=== PATIENT | male | born 1995 | race Caucasian/White ===

== ENCOUNTER → 2016-11-13 | Outpatient (CLI) | payer BC ==
[~2016-11-13] VITALS: Ht 177.8 cm; Wt 106.5 kg
[2016-11-13 13:48] VITALS: BP 135/81; PULSE 116; Ht 177.8 cm; Wt 106.5 kg
== END | disposition home or self-care (01) ==
LOC: C.NEUR 13:21
PROVIDERS: ATTEND Internal Medicine Pulmonary Disease
DX: G47.30 Sleep apnea, unspecified (principal); R06.83 Snoring

== ENCOUNTER → 2016-12-24 | Outpatient (CLI) | payer BC ==
--- NOTE | 2016-12-31 07:06 | POLYSOMNOGRAPH REPORT ---
CLINICAL DATA: A 21-year-old male with history of loud snoring and witnessed apnea without any daytime sleepiness or hypersomnia. He does have a history of sleep apnea. His father had sudden in the middle of the night from a presumed ME and sleep apnea. He has gained a lot of weight over the last few years. On the evening of 12/25/2016, a home sleep apnea test was performed using a [place] type 3 monitor. The patient has a BMI of 32.63. RECORDING RESULTS: Total recording time was 10 hours. The patient's estimated sleep time and patient monitoring time was 8.1 hours. RESPIRATORY DATA: Very mild sleep apnea was documented. The YENY was 5.7. There were 3 obstructive and 8 central apneic episodes. There were 35 hypopneic episodes. The longest respiratory event was 44 seconds. OXIMETRY DATA: Very mild nocturnal hypoxemia was seen. Oxygen blanquita was 80%. Mean saturation was 92%. Time below 89% was 5 minutes. HEART RATE DATA: Heart rates ranged from 48 to 65 beats per minute. SNORING DATA: Snoring was recorded throughout the night. IMPRESSION: Very mild sleep apnea/hypopnea with an YENY of 5.7 with mild nocturnal hypoxemia. RECOMMENDATIONS: The patient may benefit from weight loss, positional therapy, use of an oral appliance, or a repeat sleep study with CPAP. Clinical correlation is needed. BURT
== END | disposition home or self-care (01) ==
LOC: C.NEUR 09:30
PROVIDERS: ATTEND Internal Medicine Pulmonary Disease
DX: G47.30 Sleep apnea, unspecified (principal); R06.83 Snoring

== ENCOUNTER → 2017-01-04 | Outpatient (CLI) | payer BC ==
[~2017-01-04] VITALS: Ht 177.8 cm; Wt 106.9 kg
[2017-01-04 15:51] VITALS: BP 134/89; PULSE 109; Ht 177.8 cm; Wt 106.9 kg
== END | disposition home or self-care (01) ==
LOC: C.NEUR 13:45
PROVIDERS: ATTEND Internal Medicine Pulmonary Disease
DX: G47.30 Sleep apnea, unspecified (principal); R06.83 Snoring